=== PATIENT | female | born 1985 | race Caucasian/White ===

== ENCOUNTER 2019-01-11 12:47 | Inpatient (IN) | payer OTHER ==
[~2019-01-11] VITALS: Ht 154.9 cm; Wt 77.1 kg
[~2019-01-11 12:47] MED LIST: IRON325 MG PO; PRENATAL TABLE1 EAC1 PO
[2019-02-02] MEDS ORDERED: PRENATAL TABLE1 EAC1 PO (09:03)
== END 2019-02-04 15:02 | disposition home or self-care (01) | DRG 807 ==
LOC: EDSTATUS 01-28 08:30 → OB/GYN 01-28 08:30 → ADM 01-28 08:30 → OB/GYN 01-31 08:30 → LDR 02-02 06:01 → OB/GYN 02-02 11:27
PROVIDERS: ADMIT Obstetrics & Gynecology Maternal & Fetal Medicine
PROC: 10E0XZZ Delivery of Products of Conception, External Approach (ICD-10-PCS; principal; 2019-02-02)
PROC: 4A1HXCZ Monitoring of Products of Conception, Cardiac Rate, External Approach (ICD-10-PCS; 2019-02-02)
DX: O80 Encounter for full-term uncomplicated delivery (principal); Z37.0 Single live birth; Z3A.40 40 weeks gestation of pregnancy

== ENCOUNTER 2019-01-12 12:46 | Outpatient (CLI) | payer OTHER | END 2019-01-12 13:22 | disposition home or self-care (01) | LOC: NST 12:46 | DX: Z34.83 Encounter for supervision of other normal pregnancy, third trimester (principal) ==

== ENCOUNTER 2019-01-25 08:33 | Outpatient (CLI) | payer OTHER | END 2019-01-25 09:21 | disposition home or self-care (01) | LOC: NST 08:33 | DX: Z34.83 Encounter for supervision of other normal pregnancy, third trimester (principal) ==

== ENCOUNTER 2019-01-28 09:15 | Outpatient (CLI) | payer OTHER | END 2019-01-28 11:02 | disposition home or self-care (01) | LOC: NST 09:15 | DX: Z34.83 Encounter for supervision of other normal pregnancy, third trimester (principal) ==

== ENCOUNTER 2019-01-31 08:21 | Outpatient (CLI) | payer OTHER | END 2019-01-31 09:20 | disposition home or self-care (01) | LOC: NST 08:21 | DX: Z34.83 Encounter for supervision of other normal pregnancy, third trimester (principal) ==